=== PATIENT | male | born 1945 | race Two or more races ===

== ENCOUNTER 2017-05-23 14:47 | Observation (INO) | payer BC, OTHER, MEDICARE ==
[~2017-05-23] VITALS: Ht 170.2 cm; Wt 110.7 kg
[~2017-05-23 14:47] MED LIST: ASPI-1264 PO; ATOR20TA66 PO; CARV-49 PO; CLOP75TA33 PO; GLIP5TAB13 PO; LISI-604 PO; NITR0.4T51 SL
[2017-05-23 15:30] LABS: BASOPHILS % (AUTO) 0 % (0-1); EOSINOPHILS # (AUTO) 0.2 X10'3 (0-0.9); EOSINOPHILS % (AUTO) 2.4 % (0-6); HEMATOCRIT 44.3 % (42.0-52.0); LYMPHOCYTES # (AUTO) 1.1 X10'3 (1.1-4.8); LYMPHOCYTES % (AUTO) 11.8 % (21-51); MEAN CORPUSCULAR HEMOGLOBIN 28.4 PG (27.0-31.0); MEAN CORPUSCULAR HGB CONC 33.9 % (33.0-36.5); MEAN CORPUSCULAR VOLUME 83.7 FL (78-98); MEAN PLATELET VOLUME 8.2 FL (7.4-10.4); MONOCYTES # (AUTO) 0.5 X10'3 (0-0.9); MONOCYTES % (AUTO) 5.3 % (2-12); NEUTROPHILS # (AUTO) 7.8 X10'3 (1.8-7.7); NEUTROPHILS % (AUTO) 80.5 % (42-75); PLATELET COUNT 290 X10'3 (140-440); RED CELL DISTRIBUTION WIDTH 15.3 % (11.5-14.5); WHITE BLOOD COUNT 9.7 X10'3 (4.5-11.0)
[2017-05-23 15:39] LABS: INR 1.1 INR; PARTIAL THROMBOPLASTIN TIME 25 SECONDS (22-32); PROTHROMBIN TIME 11.6 SECONDS (9.0-12.0)
[2017-05-23 15:44] LABS: ALANINE AMINOTRANSFERASE 17 U/L (12-78); ALBUMIN 3.6 G/DL (3.4-5.0); ALBUMIN/GLOBULIN RATIO 0.9 (1.1-1.5); ALKALINE PHOSPHATASE 94 IU/L (46-116); ANION GAP 11 (8-16); ASPARTATE AMINO TRANSFERASE 18 U/L (10-37); BILIRUBIN,TOTAL 0.9 MG/DL (0.1-1.0); BLOOD UREA NITROGEN 33 MG/DL (7-18); BUN/CREATININE RATIO 22.3 (5.4-32.0); CALCIUM 9.3 MG/DL (8.5-10.1); CHLORIDE 107 MMOL/L (99-107); CREATININE 1.48 MG/DL (0.60-1.10); GLUCOSE 144 MG/DL (70-104); POTASSIUM 3.8 MMOL/L (3.5-5.1); SODIUM 142 MMOL/L (135-145); TOTAL PROTEIN 7.8 G/DL (6.4-8.2); eGFR 47 ML/MIN
[2017-05-23] MEDS ORDERED: furosemide 10 MG/1 ML 10ml inj IV ONE (17:55)
[2017-05-23] MEDS ORDERED: COLC0.6T69 PO (19:56)
[2017-05-23] MEDS ORDERED: ASPI-1265 PO (19:56)
[2017-05-23] MEDS ORDERED: PRED5TAB PO (19:56)
[2017-05-23] MEDS ORDERED: ATOR40TA PO (19:58)
[2017-05-23] MEDS ORDERED: ASPI-41 PO (19:58)
[2017-05-23] MEDS ORDERED: mag hydrox/Alum hydrox/simeth 30ml oral suspension PO PRN (20:40)
[2017-05-23] MEDS ORDERED: potassium Cl 40MEQ/NS 500ml 500 ML IV PRN ×2 (20:40)
[2017-05-23] MEDS ORDERED: potassium Cl 20 mEq SR tablet PO PRN (20:40)
[2017-05-23] MEDS ORDERED: magnesium hydroxide 30ml (MOM) UD suspension PO PRN (20:40)
[2017-05-23] MEDS ORDERED: acetaminophen 325mg tablet PO PRN (20:40)
[2017-05-23] MEDS ORDERED: ondansetron/PF 4mg/2ml inj IV PRN (20:40)
[2017-05-23] MEDS ORDERED: colchicine 0.6mg tablet PO PRN (20:45)
[2017-05-23] MEDS ORDERED: non-formulary drug (Atorvastatin Calcium* (Lipitor*) 1 TABLET) PO SCH (21:00)
[2017-05-23] MEDS ORDERED: AMOX-101 PO (21:04)
[2017-05-24 03:14] LABS: BASOPHILS % (AUTO) 0.1 % (0-1); EOSINOPHILS # (AUTO) 0.2 X10'3 (0-0.9); EOSINOPHILS % (AUTO) 2.2 % (0-6); HEMOGLOBIN 14.8 g/dl (14.0-17.9); LYMPHOCYTES # (AUTO) 1.1 X10'3 (1.1-4.8); MEAN CORPUSCULAR HEMOGLOBIN 28.5 PG (27.0-31.0); MEAN CORPUSCULAR HGB CONC 33.8 % (33.0-36.5); MEAN CORPUSCULAR VOLUME 84.5 FL (78-98); MEAN PLATELET VOLUME 7.9 FL (7.4-10.4); MONOCYTES # (AUTO) 0.5 X10'3 (0-0.9); MONOCYTES % (AUTO) 5.3 % (2-12); NEUTROPHILS % (AUTO) 81.4 % (42-75); PLATELET COUNT 287 X10'3 (140-440); RED CELL DISTRIBUTION WIDTH 15.4 % (11.5-14.5); WHITE BLOOD COUNT 9.8 X10'3 (4.5-11.0)
[2017-05-24 03:37] LABS: ALBUMIN 3.5 G/DL (3.4-5.0); ANION GAP 11 (8-16); BLOOD UREA NITROGEN 30 MG/DL (7-18); BUN/CREATININE RATIO 19.7 (5.4-32.0); CALCIUM 9.3 MG/DL (8.5-10.1); CHLORIDE 105 MMOL/L (99-107); CHOL/HDL RATIO 3.4 (0.00-4.99); CHOLESTEROL 158 MG/DL (0-200); CREATININE 1.52 MG/DL (0.60-1.10); GLUCOSE 174 MG/DL (70-104); HDL CHOLESTEROL 46 MG/DL (35-60); LDL CHOLESTEROL 91 MG/DL (50-100); POTASSIUM 3.4 MMOL/L (3.5-5.1); SODIUM 143 MMOL/L (135-145); TOTAL CARBON DIOXIDE 27.3 MMOL/L (24-32); TRIGLYCERIDES 124 MG/DL (20-135); eGFR 46 ML/MIN
[2017-05-24] MEDS: K and/or MAG REPLACEMENT MC SCH (08:00)
[2017-05-24] MEDS ORDERED: lisinopril 5mg tablet PO SCH (08:00)
[2017-05-24] MEDS ORDERED: carVEDilol 3.125mg tablet PO SCH (08:00)
[2017-05-24] MEDS: aspirin 325mg tablet, delayed-release (Ecotrin) PO SCH (10:27)
[2017-05-24] MEDS: potassium Cl 20 mEq SR tablet PO PRN ×3 (10:27→20:40)
[2017-05-24] MEDS: furosemide 40mg/4ml inj IV SCH ×2 (10:27→20:13)
[2017-05-24] MEDS: clopidogrel 75mg tablet PO SCH (10:27)
[2017-05-24 16:05] VITALS: BP 131/86
[2017-05-24] MEDS ORDERED: bisoprolol 5mg tablet PO SCH (20:00)
[2017-05-24] MEDS: sacubitril/valsartan 24mg-26mg tablet PO SCH (20:12)
[2017-05-24] MEDS ORDERED: atorvastatin 20mg tablet PO SCH (21:00)
[2017-05-24 22:00] VITALS: BP 109/61
[2017-05-25 05:53] LABS: BASOPHILS % (AUTO) 0.4 % (0-1); EOSINOPHILS # (AUTO) 0.4 X10'3 (0-0.9); EOSINOPHILS % (AUTO) 4.6 % (0-6); HEMATOCRIT 48.4 % (42.0-52.0); HEMOGLOBIN 16.2 g/dl (14.0-17.9); LYMPHOCYTES # (AUTO) 0.9 X10'3 (1.1-4.8); LYMPHOCYTES % (AUTO) 11.2 % (21-51); MEAN CORPUSCULAR HEMOGLOBIN 27.8 PG (27.0-31.0); MEAN CORPUSCULAR HGB CONC 33.5 % (33.0-36.5); MONOCYTES # (AUTO) 0.5 X10'3 (0-0.9); MONOCYTES % (AUTO) 6.4 % (2-12); NEUTROPHILS # (AUTO) 6.4 X10'3 (1.8-7.7); NEUTROPHILS % (AUTO) 77.4 % (42-75); PLATELET COUNT 287 X10'3 (140-440); RED BLOOD COUNT 5.83 X10'6 (4.70-6.10); WHITE BLOOD COUNT 8.2 X10'3 (4.5-11.0)
[2017-05-25 06:00] VITALS: BP 102/86
[2017-05-25 06:32] LABS: ALBUMIN 3.3 G/DL (3.4-5.0); ANION GAP 12 (8-16); BLOOD UREA NITROGEN 31 MG/DL (7-18); BUN/CREATININE RATIO 19.3 (5.4-32.0); CALCIUM 9.1 MG/DL (8.5-10.1); CHLORIDE 103 MMOL/L (99-107); CREATININE 1.61 MG/DL (0.60-1.10); GLUCOSE 166 MG/DL (70-104); POTASSIUM 3.5 MMOL/L (3.5-5.1); SODIUM 142 MMOL/L (135-145); TOTAL CARBON DIOXIDE 26.7 MMOL/L (24-32); eGFR 43 ML/MIN
[2017-05-25] MEDS: K and/or MAG REPLACEMENT MC SCH (06:36)
[2017-05-25] MEDS: sacubitril/valsartan 24mg-26mg tablet PO SCH (07:36)
[2017-05-25] MEDS: clopidogrel 75mg tablet PO SCH (07:41)
[2017-05-25] MEDS: furosemide 40mg/4ml inj IV SCH (07:41)
[2017-05-25] MEDS: aspirin 325mg tablet, delayed-release (Ecotrin) PO SCH (07:41)
[2017-05-25] MEDS ORDERED: BISOPROLOL 5 MG PO SCH (08:00)
[2017-05-25 10:00] VITALS: BP 92/63
[2017-05-25] MEDS ORDERED: SACU1TAB PO (14:08)
[2017-05-25] MEDS ORDERED: BISO5TAB PO (14:08)
[2017-05-25] MEDS ORDERED: SPIR25TA PO (14:08)
[2017-05-25] MEDS ORDERED: FURO-149 PO (14:08)
== END 2017-05-25 15:00 | disposition home or self-care (01) ==
LOC: ER 14:47 → ED HOLD 20:38 → EDBEDREQ 05-24 15:39 → ORTHO 4S 05-24 16:05
PROVIDERS: ADMIT Family Medicine; ATTEND Family Medicine
DX: I13.0 Hypertensive heart and chronic kidney disease with heart failure and stage 1 through stage 4 chronic kidney disease, or unspecified chronic kidney disease (principal); I50.23 Acute on chronic systolic (congestive) heart failure; E11.22 Type 2 diabetes mellitus with diabetic chronic kidney disease; N18.3 Chronic kidney disease, stage 3 (moderate); I25.10 Atherosclerotic heart disease of native coronary artery without angina pectoris; E87.6 Hypokalemia; E78.5 Hyperlipidemia, unspecified; E78.00 Pure hypercholesterolemia, unspecified; G47.33 Obstructive sleep apnea (adult) (pediatric); E66.9 Obesity, unspecified; M10.9 Gout, unspecified; I25.2 Old myocardial infarction; I21.A1 Myocardial infarction type 2; I34.0 Nonrheumatic mitral (valve) insufficiency; Z87.891 Personal history of nicotine dependence; Z95.5 Presence of coronary angioplasty implant and graft; Z86.73 Personal history of transient ischemic attack (TIA), and cerebral infarction without residual deficits; Z95.1 Presence of aortocoronary bypass graft
CPT/HCPCS: 36415; 80048; 80053; 80061; 83880; 84484; 85025; 85610; 85730; 87070; 93005; 93306; 96374; 96376; 99285; G0378; J1940

== ENCOUNTER 2020-03-01 09:02 | Emergency (ER) | payer BC, MEDICARE, OTHER ==
[~2020-03-01] VITALS: Ht 170.2 cm; Wt 106.8 kg
[~2020-03-01 09:02] MED LIST changes: -ASPI-1264 PO; +ASPI-41 PO; -ATOR20TA66 PO; +ATOR40TA PO; +BISO5TAB PO; -CARV-49 PO; +COLC0.6T72 PO; +FURO-149 PO; -GLIP5TAB13 PO; -LISI-604 PO; +SACU1TAB PO; +SPIR25TA PO
[2020-03-01 09:17] VITALS: BP 91/48
[2020-03-01] MEDS ORDERED: furosemide 40mg/4ml inj IV ONE (09:30)
[2020-03-01] MEDS ORDERED: ipratropium/albuterol 3ml nebule NEB ONE (09:30)
[2020-03-01] MEDS ORDERED: methylPREDNISolone sod succ 125mg/2ml vial IV ONE (09:30)
[2020-03-01 10:30] LABS: BASOPHILS % (AUTO) 0.4 % (0-1); EOSINOPHILS % (AUTO) 0.7 % (0-6); HEMATOCRIT 45.6 % (42.0-52.0); HEMOGLOBIN 15.3 g/dl (14.0-17.9); LYMPHOCYTES # (AUTO) 0.6 X10'3 (1.1-4.8); LYMPHOCYTES % (AUTO) 11.8 % (21-51); MEAN CORPUSCULAR HEMOGLOBIN 30.4 PG (27.0-31.0); MEAN CORPUSCULAR HGB CONC 33.6 g/dL (33.0-36.5); MEAN CORPUSCULAR VOLUME 90.6 FL (78-98); MEAN PLATELET VOLUME 8.5 FL (7.4-10.4); MONOCYTES # (AUTO) 0.4 X10'3 (0-0.9); MONOCYTES % (AUTO) 8.8 % (2-12); NEUTROPHILS # (AUTO) 3.9 X10'3 (1.8-7.7); NEUTROPHILS % (AUTO) 78.3 % (42-75); PLATELET COUNT 159 X10'3 (140-440); RED BLOOD COUNT 5.03 X10'6 (4.70-6.10); RED CELL DISTRIBUTION WIDTH 13.6 % (11.5-14.5); WHITE BLOOD COUNT 4.9 X10'3 (4.5-11.0)
[2020-03-01 10:45] LABS: D-DIMER 0.84 MG/L FEU (0-0.50)
[2020-03-01 10:58] LABS: ALANINE AMINOTRANSFERASE 41 U/L (12-78); ALBUMIN 2.6 G/DL (3.4-5.0); ALBUMIN/GLOBULIN RATIO 0.5 (1.1-1.5); ALKALINE PHOSPHATASE 76 IU/L (46-116); ANION GAP 12 (8-16); ASPARTATE AMINO TRANSFERASE 46 U/L (10-37); BILIRUBIN,TOTAL 1.1 MG/DL (0.1-1.0); BLOOD UREA NITROGEN 36 MG/DL (7-18); BUN/CREATININE RATIO 18.4 (5.4-32.0); CALCIUM 8.5 MG/DL (8.5-10.1); CHLORIDE 100 MMOL/L (99-107); CREATININE 1.96 MG/DL (0.60-1.10); GLUCOSE 227 MG/DL (70-104); SODIUM 136 MMOL/L (135-145); TOTAL CARBON DIOXIDE 24.1 MMOL/L (24-32); TOTAL PROTEIN 7.4 G/DL (6.4-8.2); eGFR 34 ML/MIN
[2020-03-01] MEDS ORDERED: normal saline 1000ML IV soln IVB ONE (11:55)
== END 2020-03-01 13:05 | disposition home or self-care (01) ==
LOC: ER 09:03
DX: I50.33 Acute on chronic diastolic (congestive) heart failure (principal); I11.0 Hypertensive heart disease with heart failure; I95.9 Hypotension, unspecified; E86.1 Hypovolemia; J44.9 Chronic obstructive pulmonary disease, unspecified; I25.10 Atherosclerotic heart disease of native coronary artery without angina pectoris; E78.00 Pure hypercholesterolemia, unspecified; M10.9 Gout, unspecified; Z95.1 Presence of aortocoronary bypass graft; Z79.82 Long term (current) use of aspirin; Z79.899 Other long term (current) drug therapy
CPT/HCPCS: 36415; 71045; 80053; 83880; 84484; 85025; 85379; 93005; 94640; 96361; 96374; 96375; 99285; J1940; J2930; J7030; 94760

== ENCOUNTER 2021-04-14 21:03 | Inpatient (IN) | payer MEDICARE, BC ==
[~2021-04-14] VITALS: Ht 170.2 cm; Wt 96.8 kg
[~2021-04-14 21:03] MED LIST changes: +enoxaparin 100mg/ml syringe ONE; +enoxaparin 30mg/0.3ml syringe ONE; +methylPREDNISolone sod succ 125mg/2ml vial ONE
[2021-04-14] MEDS ORDERED: heparin 25,000 UNIT/250ml bag 250 ML IV SCH (21:20)
[2021-04-14] MEDS ORDERED: heparin 10,000 units/1 ML INJ IV ONE ×2 (21:20→21:25)
[2021-04-14] MEDS ORDERED: nitroGLYCERIN 1gm ointment UD TP ONE (21:20)
[2021-04-14] MEDS ORDERED: heparin 10,000 units/1 ML INJ IV PRN (21:20)
[2021-04-14] MEDS ORDERED: ALBU8HFA IH (21:25)
[2021-04-14] MEDS ORDERED: SACU1TAB PO (21:40)
[2021-04-14] MEDS ORDERED: CARV6.253 PO (21:40)
[2021-04-14] MEDS ORDERED: morphine 4 MG/ML inj SYRINge IV ONE (21:45)
[2021-04-14] MEDS ORDERED: proCHLORperazine 10 MG/2 ml inj IV ONE (21:45)
[2021-04-14 21:46] LABS: BASOPHILS # (AUTO) 0.1 X10'3 (0-0.2); BASOPHILS % (AUTO) 1.1 % (0-1); EOSINOPHILS # (AUTO) 0.4 X10'3 (0-0.9); HEMATOCRIT 46.3 % (42.0-52.0); HEMOGLOBIN 15.4 g/dl (14.0-17.9); LYMPHOCYTES # (AUTO) 1.2 X10'3 (1.1-4.8); MEAN CORPUSCULAR HEMOGLOBIN 29.3 PG (27.0-31.0); MEAN CORPUSCULAR HGB CONC 33.3 g/dL (33.0-36.5); MEAN CORPUSCULAR VOLUME 88.2 FL (78-98); MONOCYTES # (AUTO) 0.5 X10'3 (0-0.9); MONOCYTES % (AUTO) 6.2 % (2-12); NEUTROPHILS # (AUTO) 5.7 X10'3 (1.8-7.7); NEUTROPHILS % (AUTO) 72.7 % (42-75); PLATELET COUNT 260 X10'3 (140-440); RED BLOOD COUNT 5.25 X10'6 (4.70-6.10); RED CELL DISTRIBUTION WIDTH 16.3 % (11.5-14.5); WHITE BLOOD COUNT 7.8 X10'3 (4.5-11.0)
[2021-04-14 21:52] LABS: APTT 26 SECONDS (22-32)
[2021-04-14 21:55] LABS: ALANINE AMINOTRANSFERASE 14 U/L (12-78); ALBUMIN 3.7 G/DL (3.4-5.0); ALBUMIN/GLOBULIN RATIO 0.9 (1.1-1.5); ALKALINE PHOSPHATASE 83 IU/L (46-116); ANION GAP 14 (8-16); ASPARTATE AMINO TRANSFERASE 14 U/L (10-37); BILIRUBIN,TOTAL 1.5 MG/DL (0.1-1.0); BLOOD UREA NITROGEN 32 MG/DL (7-18); BUN/CREATININE RATIO 19.8 (5.4-32.0); CALCIUM 9.3 MG/DL (8.5-10.1); CHLORIDE 106 MMOL/L (99-107); CREATININE 1.62 MG/DL (0.60-1.10); GLUCOSE 190 MG/DL (70-104); POTASSIUM 3.8 MMOL/L (3.5-5.1); SODIUM 142 MMOL/L (135-145); TOTAL CARBON DIOXIDE 22.5 MMOL/L (24-32); TOTAL PROTEIN 7.7 G/DL (6.4-8.2); eGFR 42 ML/MIN
[2021-04-14] MEDS ORDERED: ondansetron/PF 4mg/2ml inj IV PRN (22:25)
[2021-04-14] MEDS ORDERED: magnesium 4gm in 100ml NS 100 ML IV PRN (22:25)
[2021-04-14] MEDS ORDERED: potassium Cl 20 mEq SR tablet PO PRN ×2 (22:25)
[2021-04-14] MEDS ORDERED: potassium CL 10mEq/100ml bag 100 ML IV PRN (22:25)
[2021-04-14] MEDS ORDERED: magnesium Cl slow-release 64mg tablet PO PRN (22:25)
[2021-04-14] MEDS ORDERED: magnesium 2GM in 50ml NS 50 ML IV PRN (22:25)
[2021-04-14] MEDS ORDERED: magnesium hydroxide 30ml (MOM) UD suspension PO PRN (22:25)
[2021-04-14] MEDS ORDERED: acetaminophen 325mg tablet PO PRN (22:25)
[2021-04-14] MEDS ORDERED: mag hydrox/Alum hydrox/simeth 30ml oral suspension PO PRN (22:25)
[2021-04-14] MEDS ORDERED: PERFLUTREN PROTEIN-A MICROSPHR (Optison) 0.22 MG/ML 3ML VIAL IV PRN (22:25)
[2021-04-14] MEDS ORDERED: albuterol 2.5 MG/3 ML nebule NEB PRN (22:30)
[2021-04-14] MEDS ORDERED: nitroGLYCERIN 0.4mg SUBLingual tab SL PRN (22:30)
--- NOTE | 2021-04-14 22:37 | NUR ---
Patient BP began to drop to 80/44 at 22:39 and O2 sat at 90%. MD notified and gave orders to remove nitro paste that had been previously applied to chest. 4L NC oxygen administered. BP raised to 93/47 at 22:40 and O2 saturation to 95%. No further orders at this time.
[2021-04-14 23:21] LABS: MAGNESIUM 1.8 MG/DL (1.5-2.4); POTASSIUM 4.2 MMOL/L (3.5-5.1)
--- NOTE | 2021-04-14 23:30 | NUR ---
Critical lab value taken. Troponin 172. notified.
[2021-04-15] VITALS (9 sets, daily range): BP systolic 104–120; BP diastolic 62–73
--- NOTE | 2021-04-15 | NUR ---
Patient transferred to floor from ED in no apparent distress. VS stable. Patient denies pain or discomfort. Patient oriented to room. All safety measures implemented. Will continue monitor
--- NOTE | 2021-04-15 04:30 | NUR ---
Patient has 9 VTACH beats while patient was asleep. MD made aware. EKG Strips signed and file in patient chart.
[2021-04-15 05:46] LABS: BASOPHILS # (AUTO) 0.1 X10'3 (0-0.2); BASOPHILS % (AUTO) 1.1 % (0-1); EOSINOPHILS # (AUTO) 0.1 X10'3 (0-0.9); EOSINOPHILS % (AUTO) 1.9 % (0-6); HEMATOCRIT 49.4 % (42.0-52.0); HEMOGLOBIN 16.3 g/dl (14.0-17.9); LYMPHOCYTES % (AUTO) 13.2 % (21-51); MEAN CORPUSCULAR HGB CONC 32.9 g/dL (33.0-36.5); MEAN CORPUSCULAR VOLUME 88.1 FL (78-98); MEAN PLATELET VOLUME 8.4 FL (7.4-10.4); MONOCYTES # (AUTO) 0.3 X10'3 (0-0.9); MONOCYTES % (AUTO) 4.1 % (2-12); NEUTROPHILS # (AUTO) 5.8 X10'3 (1.8-7.7); NEUTROPHILS % (AUTO) 79.7 % (42-75); PLATELET COUNT 243 X10'3 (140-440); RED BLOOD COUNT 5.61 X10'6 (4.70-6.10); RED CELL DISTRIBUTION WIDTH 16.3 % (11.5-14.5); WHITE BLOOD COUNT 7.2 X10'3 (4.5-11.0)
[2021-04-15 05:52] LABS: ALANINE AMINOTRANSFERASE 16 U/L (12-78); ALBUMIN 3.1 G/DL (3.4-5.0); ALBUMIN/GLOBULIN RATIO 0.9 (1.1-1.5); ALKALINE PHOSPHATASE 67 IU/L (46-116); ANION GAP 10 (8-16); ASPARTATE AMINO TRANSFERASE 30 U/L (10-37); BILIRUBIN,TOTAL 1.7 MG/DL (0.1-1.0); BLOOD UREA NITROGEN 31 MG/DL (7-18); BUN/CREATININE RATIO 19.7 (5.4-32.0); CALCIUM 8.6 MG/DL (8.5-10.1); CHLORIDE 109 MMOL/L (99-107); CREATININE 1.57 MG/DL (0.60-1.10); GLUCOSE 167 MG/DL (70-104); POTASSIUM 4.3 MMOL/L (3.5-5.1); SODIUM 143 MMOL/L (135-145); TOTAL CARBON DIOXIDE 23.6 MMOL/L (24-32); TOTAL PROTEIN 6.7 G/DL (6.4-8.2); eGFR 43 ML/MIN
--- NOTE | 2021-04-15 06:10 | NUR ---
Dr. brower paged to report increase 6hr troponin. Patient is pleasantly in bed. Denies pain or discomfort. All safety in place. Will continue to monitor
--- NOTE | 2021-04-15 07:02 | NUR ---
Problems reprioritized. Patient report given, questions answered & plan of care reviewed with CHINTAN Greenberg.
[2021-04-15] MEDS: K and/or MAG REPLACEMENT MC SCH ×2 (08:00→20:00)
[2021-04-15] MEDS: clopidogrel 75mg tablet PO SCH (09:31)
[2021-04-15] MEDS: sacubitril/valsartan 24mg-26mg tablet PO SCH ×2 (09:31→20:37)
[2021-04-15] MEDS: carvedilol 6.25mg tablet PO SCH ×2 (09:32→20:37)
[2021-04-15] MEDS: docusate sod 100mg capsule PO SCH ×2 (09:32→20:38)
[2021-04-15] MEDS ORDERED: midazolam 1 mg/ML 2ml injection ONE (10:56)
[2021-04-15] MEDS ORDERED: LIDOcaine 1% (10mg/ml)w/preservative inj. 20ml MDV ONE (10:56)
[2021-04-15] MEDS ORDERED: iohexol 350 MG/1 ML 200ml bottle ONE (10:56)
[2021-04-15] MEDS ORDERED: nitroGLYCERIN-Tridil 50MG/D5W 250 ML IV ONE (10:56)
[2021-04-15] MEDS ORDERED: fentaNYL/PF 50MCG/1 ML 2ML syringe ONE (10:56)
[2021-04-15] MEDS ORDERED: heparin 1,000unit/ml 10ml vial 10 ML ONE (10:56)
[2021-04-15] MEDS ORDERED: iohexol 350 MG/ML 50ML vial IV ONE (10:56)
[2021-04-15] MEDS ORDERED: DOBUTamine-DoBUTrex 500mg/D5W 250 ML IV ONE (11:52)
[2021-04-15] MEDS ORDERED: furosemide 40mg/4ml inj ONE ×2 (11:52→12:22)
[2021-04-15] MEDS ORDERED: iohexol 350MG/ML 100ml bottle IV ONE (12:51)
[2021-04-15] MEDS ORDERED: clopidogrel 300mg tablet ONE (13:16)
--- NOTE | 2021-04-15 14:08 | NUR ---
1400- patient return from cardiac Cath Aox4 BP at this time 112/62, HR 74, 02 97% no complications noted at this time.
[2021-04-15] MEDS ORDERED: HYDROcodone/acetaminophen 10/325mg tab PO PRN ×2 (14:20)
[2021-04-15] MEDS ORDERED: cyclobenzaprine 10mg tablet PO PRN (14:20)
[2021-04-15] MEDS ORDERED: acetaminophen 325mg tablet PO PRN ×2 (14:20)
[2021-04-15] MEDS: DOBUTamine 2000 MCG/250ML BAG IV SCH (17:17)
--- NOTE | 2021-04-15 18:23 | NUR ---
late entry heparin stop at 1430 per MD order.
[2021-04-15] MEDS: potassium Cl 20 mEq SR tablet PO SCH (20:37)
[2021-04-15] MEDS: atorvastatin 20mg tablet PO SCH (20:38)
[2021-04-15] MEDS: furosemide 40mg/4ml inj IV SCH (20:38)
--- NOTE | 2021-04-15 23:00 | NUR ---
Pt placed on standby cardiac monitoring. Pt denied chest pain or any other discomfort.
[2021-04-16] VITALS (14 sets, daily range): BP systolic 91–114; BP diastolic 56–70
--- NOTE | 2021-04-16 02:33 | NUR ---
Dr Monsivais made aware of pt's low heart rate 48-53 note on the cigarette machine operator. pt is getting dobutamine drips; no order given and stated that it is ok.
--- NOTE | 2021-04-16 03:02 | NUR ---
notified of BP 91/56 and 93/58 while pt getting Dobutamine drips; no further order give.
[2021-04-16] MEDS: DOBUTamine 2000 MCG/250ML BAG IV SCH ×2 (05:27→22:51)
--- NOTE | 2021-04-16 06:15 | NUR ---
Patient in room PCU 3015. I have received report from Kaitlynn WOODSON and had the opportunity to ask questions and assume patient care.
--- NOTE | 2021-04-16 06:28 | NUR ---
Patient in room PCU 3015. I have received report from CHINTAN Calderón and had the opportunity to ask questions and assume patient care.
[2021-04-16 06:32] LABS: BASOPHILS # (AUTO) 0.1 X10'3 (0-0.2); BASOPHILS % (AUTO) 0.8 % (0-1); EOSINOPHILS # (AUTO) 0.4 X10'3 (0-0.9); EOSINOPHILS % (AUTO) 5.5 % (0-6); HEMATOCRIT 41.1 % (42.0-52.0); HEMOGLOBIN 13.9 g/dl (14.0-17.9); LYMPHOCYTES # (AUTO) 0.9 X10'3 (1.1-4.8); LYMPHOCYTES % (AUTO) 13.1 % (21-51); MEAN CORPUSCULAR HEMOGLOBIN 29.3 PG (27.0-31.0); MEAN CORPUSCULAR HGB CONC 33.7 g/dL (33.0-36.5); MEAN CORPUSCULAR VOLUME 87.1 FL (78-98); MEAN PLATELET VOLUME 7.9 FL (7.4-10.4); MONOCYTES # (AUTO) 0.5 X10'3 (0-0.9); MONOCYTES % (AUTO) 7.1 % (2-12); NEUTROPHILS # (AUTO) 5.1 X10'3 (1.8-7.7); NEUTROPHILS % (AUTO) 73.5 % (42-75); PLATELET COUNT 214 X10'3 (140-440); RED BLOOD COUNT 4.72 X10'6 (4.70-6.10); WHITE BLOOD COUNT 6.9 X10'3 (4.5-11.0)
[2021-04-16 07:10] LABS: ALANINE AMINOTRANSFERASE 14 U/L (12-78); ALBUMIN 2.9 G/DL (3.4-5.0); ALBUMIN/GLOBULIN RATIO 0.9 (1.1-1.5); ALKALINE PHOSPHATASE 63 IU/L (46-116); ASPARTATE AMINO TRANSFERASE 40 U/L (10-37); BLOOD UREA NITROGEN 32 MG/DL (7-18); BUN/CREATININE RATIO 17.1 (5.4-32.0); CALCIUM 8.5 MG/DL (8.5-10.1); CHLORIDE 103 MMOL/L (99-107); CHOL/HDL RATIO 2.8 (0.00-4.99); CHOLESTEROL 164 MG/DL (0-200); CREATININE 1.87 MG/DL (0.60-1.10); GLUCOSE 133 MG/DL (70-104); HDL CHOLESTEROL 59 MG/DL (35-60); LDL CHOLESTEROL 90 MG/DL (50-100); MAGNESIUM 1.9 MG/DL (1.5-2.4); TOTAL CARBON DIOXIDE 24.3 MMOL/L (24-32); TOTAL PROTEIN 6.3 G/DL (6.4-8.2); TRIGLYCERIDES 81 MG/DL (20-135); eGFR 35 ML/MIN
[2021-04-16] MEDS: sacubitril/valsartan 24mg-26mg tablet PO SCH ×3 (07:29→20:11)
[2021-04-16] MEDS: docusate sod 100mg capsule PO SCH (07:30)
[2021-04-16] MEDS: carvedilol 6.25mg tablet PO SCH (07:30)
[2021-04-16 07:34] LABS: ANION GAP 16 (8-16); POTASSIUM 3.6 MMOL/L (3.5-5.1); SODIUM 143 MMOL/L (135-145)
[2021-04-16] MEDS: K and/or MAG REPLACEMENT MC SCH ×2 (07:43→20:00)
[2021-04-16] MEDS: potassium Cl 20 mEq SR tablet PO SCH ×2 (07:44→20:10)
[2021-04-16] MEDS: furosemide 40mg/4ml inj IV SCH ×2 (07:44→20:00)
[2021-04-16] MEDS: clopidogrel 75mg tablet PO SCH (07:44)
[2021-04-16] MEDS ORDERED: carVEDilol 3.125mg tablet PO ONE (10:05)
--- NOTE | 2021-04-16 16:49 | NUR ---
Pt discharged to home from the hospital. Discharge paperwork reviewed with patient and their spouse with the assistance of this service writer advisor. PIV and telemetry removed. Belongings returned. All questions answered prior to signing discharge paperwork.
--- NOTE | 2021-04-16 18:00 | NUR ---
[place] documentation: I have reviewed and agree with all interventions, assessments performed and documented by Farideh Winters RN.
--- NOTE | 2021-04-16 18:10 | NUR ---
Problems reprioritized. Patient report given, questions answered & plan of care reviewed with Kaitlynn WOODSON.
--- NOTE | 2021-04-16 18:24 | NUR ---
Problems reprioritized. Patient report given, questions answered & plan of care reviewed with CHINTAN Calderón.
--- NOTE | 2021-04-16 18:30 | NUR ---
Pt in bed AAOx4 eating dinner, denied any complaints. Dobutamine drips infusing via left arm at 5mcg/kg/m. Vitals has been monitor per protocol. right groin procedure site dressing is clean and intact, pedal pulse palpable on both foot.
[2021-04-16] MEDS: atorvastatin 20mg tablet PO SCH (20:10)
[2021-04-16] MEDS: carVEDilol 3.125mg tablet PO SCH (20:11)
[2021-04-17] VITALS (16 sets, daily range): BP systolic 75–125; BP diastolic 40–83
--- NOTE | 2021-04-17 04:00 | NUR ---
Pt asleep, IV drips infusing well with no complaints
[2021-04-17 07:33] LABS: BASOPHILS % (AUTO) 0.5 % (0-1); EOSINOPHILS # (AUTO) 0.4 X10'3 (0-0.9); EOSINOPHILS % (AUTO) 5.9 % (0-6); HEMATOCRIT 41.8 % (42.0-52.0); HEMOGLOBIN 14.1 g/dl (14.0-17.9); LYMPHOCYTES # (AUTO) 0.8 X10'3 (1.1-4.8); LYMPHOCYTES % (AUTO) 11.1 % (21-51); MEAN CORPUSCULAR HEMOGLOBIN 29.4 PG (27.0-31.0); MEAN CORPUSCULAR HGB CONC 33.6 g/dL (33.0-36.5); MEAN CORPUSCULAR VOLUME 87.3 FL (78-98); MEAN PLATELET VOLUME 8.2 FL (7.4-10.4); MONOCYTES # (AUTO) 0.6 X10'3 (0-0.9); MONOCYTES % (AUTO) 8.2 % (2-12); NEUTROPHILS # (AUTO) 5.2 X10'3 (1.8-7.7); NEUTROPHILS % (AUTO) 74.3 % (42-75); PLATELET COUNT 203 X10'3 (140-440); RED CELL DISTRIBUTION WIDTH 16.1 % (11.5-14.5)
[2021-04-17 07:42] LABS: ALANINE AMINOTRANSFERASE 14 U/L (12-78); ALBUMIN 2.9 G/DL (3.4-5.0); ALBUMIN/GLOBULIN RATIO 0.9 (1.1-1.5); ALKALINE PHOSPHATASE 63 IU/L (46-116); ANION GAP 13 (8-16); ASPARTATE AMINO TRANSFERASE 26 U/L (10-37); BILIRUBIN,TOTAL 2.2 MG/DL (0.1-1.0); BLOOD UREA NITROGEN 32 MG/DL (7-18); BUN/CREATININE RATIO 14.2 (5.4-32.0); CALCIUM 8.8 MG/DL (8.5-10.1); CHLORIDE 104 MMOL/L (99-107); CREATININE 2.26 MG/DL (0.60-1.10); GLUCOSE 130 MG/DL (70-104); MAGNESIUM 1.9 MG/DL (1.5-2.4); POTASSIUM 3.6 MMOL/L (3.5-5.1); SODIUM 141 MMOL/L (135-145); TOTAL CARBON DIOXIDE 24.2 MMOL/L (24-32); TOTAL PROTEIN 6.3 G/DL (6.4-8.2); eGFR 29 ML/MIN
[2021-04-17] MEDS: K and/or MAG REPLACEMENT MC SCH ×2 (08:00→19:15)
[2021-04-17] MEDS: potassium Cl 20 mEq SR tablet PO SCH (08:14)
[2021-04-17] MEDS: sacubitril/valsartan 24mg-26mg tablet PO SCH ×2 (08:14→21:40)
[2021-04-17] MEDS: furosemide 40mg/4ml inj IV SCH (08:14)
[2021-04-17] MEDS: carVEDilol 3.125mg tablet PO SCH ×2 (08:15→21:40)
[2021-04-17] MEDS: clopidogrel 75mg tablet PO SCH (08:15)
--- NOTE | 2021-04-17 15:55 | NUR ---
DIETARY CLIENT HAS LOST 38LBS ON A LOW CARB DIET
--- NOTE | 2021-04-17 17:00 | NUR ---
Mr Gilmore has been assessed as indicated. He continues to deny pain. He has ambulated about the unit with assistance for equipment. He has been fitted and instructed on the Zoll life vest. He has it on now. Dobutamine drip will be decreased and stopped in AM. It is intended that he will be DC to home tomorrow
--- NOTE | 2021-04-17 18:15 | NUR ---
Problems reprioritized. Patient report given, questions answered & plan of care reviewed with HEAVENLY.
[2021-04-17] MEDS: DOBUTamine 2000 MCG/250ML BAG IV SCH (18:47)
--- NOTE | 2021-04-17 21:00 | NUR ---
Pt removed the life west, reported that it is not working well. Life west reapplied and pt encouraged to keep it on. Vitals remained stable on the monitor. Pt voiced no other complaints.
[2021-04-17] MEDS: atorvastatin 20mg tablet PO SCH (21:40)
[2021-04-17] MEDS: OXAZEpam 15mg capsule PO PRN (21:40)
[2021-04-18] VITALS (14 sets, daily range): BP systolic 77–144; BP diastolic 35–99
--- NOTE | 2021-04-18 02:00 | NUR ---
IV medication infusing well. Continued to tech patient the importance of keeping the life west on as instructed.
[2021-04-18 05:46] LABS: BASOPHILS # (AUTO) 0.1 X10'3 (0-0.2); BASOPHILS % (AUTO) 0.8 % (0-1); EOSINOPHILS # (AUTO) 0.5 X10'3 (0-0.9); HEMOGLOBIN 14.3 g/dl (14.0-17.9); LYMPHOCYTES % (AUTO) 15.3 % (21-51); MEAN CORPUSCULAR HEMOGLOBIN 29.1 PG (27.0-31.0); MEAN CORPUSCULAR HGB CONC 33.3 g/dL (33.0-36.5); MEAN CORPUSCULAR VOLUME 87.2 FL (78-98); MEAN PLATELET VOLUME 7.9 FL (7.4-10.4); MONOCYTES # (AUTO) 0.6 X10'3 (0-0.9); MONOCYTES % (AUTO) 9.5 % (2-12); NEUTROPHILS # (AUTO) 4.4 X10'3 (1.8-7.7); NEUTROPHILS % (AUTO) 67.4 % (42-75); PLATELET COUNT 213 X10'3 (140-440); RED BLOOD COUNT 4.93 X10'6 (4.70-6.10); WHITE BLOOD COUNT 6.6 X10'3 (4.5-11.0)
[2021-04-18 06:34] LABS: ALANINE AMINOTRANSFERASE 15 U/L (12-78); ALBUMIN 3.1 G/DL (3.4-5.0); ALBUMIN/GLOBULIN RATIO 0.8 (1.1-1.5); ALKALINE PHOSPHATASE 67 IU/L (46-116); ANION GAP 12 (8-16); ASPARTATE AMINO TRANSFERASE 20 U/L (10-37); BILIRUBIN,TOTAL 1.8 MG/DL (0.1-1.0); BLOOD UREA NITROGEN 38 MG/DL (7-18); BUN/CREATININE RATIO 12.5 (5.4-32.0); CALCIUM 8.8 MG/DL (8.5-10.1); CHLORIDE 103 MMOL/L (99-107); CREATININE 3.04 MG/DL (0.60-1.10); GLUCOSE 125 MG/DL (70-104); POTASSIUM 3.7 MMOL/L (3.5-5.1); SODIUM 139 MMOL/L (135-145); TOTAL PROTEIN 6.8 G/DL (6.4-8.2); eGFR 20 ML/MIN
[2021-04-18] MEDS ORDERED: DOBUTamine-DoBUTrex 500mg/D5W 250 ML IV SCH ×2 (07:00→11:07)
[2021-04-18] MEDS: carVEDilol 3.125mg tablet PO SCH ×2 (08:00→20:25)
[2021-04-18] MEDS: K and/or MAG REPLACEMENT MC SCH ×2 (08:00→20:00)
[2021-04-18] MEDS ORDERED: furosemide 40mg tablet PO SCH (08:00)
[2021-04-18] MEDS: sacubitril/valsartan 24mg-26mg tablet PO SCH (08:00)
[2021-04-18] MEDS: potassium Cl 20 mEq SR tablet PO SCH (08:26)
[2021-04-18] MEDS: clopidogrel 75mg tablet PO SCH (08:26)
--- NOTE | 2021-04-18 09:12 | NUR ---
Initial: Pt admitted w/ NSTEMI per EMR. Currently on Heart Healthy diet w/ mostly 100% intake of meals meeting needs, though recommend liberalizing Regular diet given lipid panel WNL. LBM 04/15 w/ PRN MoM available. No nutrition intervention implemented at this time, will continue to monitor. Recs: 1. Continue Heart Healthy diet as tolerated, liberalize to Regular, lipid panel WNL 2. Bowel care per rx 3. Weekly wts Addendum: 04/18/21 at [address] Amended: Links added.
[2021-04-18] MEDS ORDERED: normal saline 1000ml 1,000 ML IV SCH ×2 (09:50→16:35)
[2021-04-18] MEDS: aspirin 81mg tab.chew PO SCH (12:42)
--- NOTE | 2021-04-18 16:30 | NUR ---
Dr Edwards has requested NS at 50ml after current IVF until labs are evaluated in AM.
--- NOTE | 2021-04-18 18:20 | NUR ---
Problems reprioritized. Patient report given, questions answered & plan of care reviewed with HEAVENLY .
[2021-04-18] MEDS: OXAZEpam 15mg capsule PO PRN (20:25)
[2021-04-18] MEDS: atorvastatin 20mg tablet PO SCH (20:25)
[2021-04-19] VITALS (22 sets, daily range): BP systolic 91–117; BP diastolic 45–81
[2021-04-19 06:39] LABS: BASOPHILS % (AUTO) 0.6 % (0-1); EOSINOPHILS # (AUTO) 0.5 X10'3 (0-0.9); EOSINOPHILS % (AUTO) 7.7 % (0-6); HEMATOCRIT 41.1 % (42.0-52.0); HEMOGLOBIN 13.5 g/dl (14.0-17.9); LYMPHOCYTES # (AUTO) 0.8 X10'3 (1.1-4.8); LYMPHOCYTES % (AUTO) 13.1 % (21-51); MEAN CORPUSCULAR HEMOGLOBIN 28.9 PG (27.0-31.0); MEAN CORPUSCULAR HGB CONC 32.8 g/dL (33.0-36.5); MONOCYTES # (AUTO) 0.5 X10'3 (0-0.9); MONOCYTES % (AUTO) 9.1 % (2-12); NEUTROPHILS # (AUTO) 4.2 X10'3 (1.8-7.7); NEUTROPHILS % (AUTO) 69.5 % (42-75); PLATELET COUNT 207 X10'3 (140-440); RED BLOOD COUNT 4.67 X10'6 (4.70-6.10); RED CELL DISTRIBUTION WIDTH 16.4 % (11.5-14.5); WHITE BLOOD COUNT 6.1 X10'3 (4.5-11.0)
[2021-04-19 07:06] LABS: ALANINE AMINOTRANSFERASE 14 U/L (12-78); ALBUMIN 2.9 G/DL (3.4-5.0); ALBUMIN/GLOBULIN RATIO 0.8 (1.1-1.5); ALKALINE PHOSPHATASE 61 IU/L (46-116); ANION GAP 12 (8-16); ASPARTATE AMINO TRANSFERASE 23 U/L (10-37); BILIRUBIN,TOTAL 1.4 MG/DL (0.1-1.0); BLOOD UREA NITROGEN 42 MG/DL (7-18); BUN/CREATININE RATIO 11.9 (5.4-32.0); CALCIUM 8.4 MG/DL (8.5-10.1); CHLORIDE 106 MMOL/L (99-107); CREATININE 3.52 MG/DL (0.60-1.10); GLUCOSE 125 MG/DL (70-104); SODIUM 139 MMOL/L (135-145); TOTAL CARBON DIOXIDE 21.3 MMOL/L (24-32); TOTAL PROTEIN 6.4 G/DL (6.4-8.2); eGFR 17 ML/MIN
[2021-04-19] MEDS: K and/or MAG REPLACEMENT MC SCH ×2 (08:00→20:00)
--- NOTE | 2021-04-19 08:17 | NUR ---
Message: 30[address] lan dyspnea hx of anx. may I have Ativan? Nurse Ro 2017 above to ROB client is working hard to breath PRN neb has alos been required Addendum: 04/19/21 at 1926 by Nora Rai RN above note wrong client
[2021-04-19] MEDS: aspirin 81mg tab.chew PO SCH (10:00)
[2021-04-19] MEDS: carVEDilol 3.125mg tablet PO SCH ×2 (10:00→20:13)
[2021-04-19] MEDS: clopidogrel 75mg tablet PO SCH (10:05)
[2021-04-19] MEDS: DOBUTamine-DoBUTrex 500mg/D5W 250 ML IV SCH ×2 (10:47→18:45)
[2021-04-19 16:53] LABS: CLARITY,URINE CLEAR (Clear); COLOR,URINE YELLOW (Yellow); GLUCOSE, URINE NEGATIVE (Neg); KETONES,URINE NEGATIVE (Neg); LEUKOCYTE ESTERASE ,URINE NEGATIVE (Neg); NITRITES, URINE NEGATIVE (Neg); OCCULT BLOOD,URINE NEGATIVE (Neg); PROTEIN,URINE TRACE mg/dl (Neg); UROBILINOGEN,URINE 0.2 E.U/dL (0.2-1.0)
[2021-04-19 17:18] LABS: UA COLLECTION TYPE NON-SPECIFIED
[2021-04-19 17:21] LABS: BACTERIA,URINE FEW /HPF (Neg); RBC,URINE NONE SEEN /HPF (0-2); SQUAMOUS EPITHELIAL CELL,UR FEW /LPF (FEW); WBC,URINE 0-4 /HPF (0-4)
--- NOTE | 2021-04-19 18:00 | NUR ---
Mr Hannon was assessed a indicated. renal function is continually being monitored. Dobutamine was increased to 5 this shift. IV fluids were DC. He ambulates about the unit with assistance from staff for equipment management. He continues to deny pain and will continue to be monitored
--- NOTE | 2021-04-19 18:15 | NUR ---
Problems reprioritized. Patient report given, questions answered & plan of care reviewed with [employer].
[2021-04-19] MEDS: atorvastatin 20mg tablet PO SCH (20:13)
[2021-04-20] VITALS (20 sets, daily range): BP systolic 97–121; BP diastolic 55–74
[2021-04-20] MEDS: K and/or MAG REPLACEMENT MC SCH ×2 (08:00→20:00)
[2021-04-20] MEDS: aspirin 81mg tab.chew PO SCH (08:47)
[2021-04-20] MEDS: carVEDilol 3.125mg tablet PO SCH ×2 (08:47→20:08)
[2021-04-20] MEDS: clopidogrel 75mg tablet PO SCH (08:47)
[2021-04-20 09:44] LABS: BASOPHILS # (AUTO) 0.1 X10'3 (0-0.2); BASOPHILS % (AUTO) 0.8 % (0-1); EOSINOPHILS # (AUTO) 0.4 X10'3 (0-0.9); EOSINOPHILS % (AUTO) 5.6 % (0-6); HEMATOCRIT 41.6 % (42.0-52.0); HEMOGLOBIN 13.6 g/dl (14.0-17.9); LYMPHOCYTES # (AUTO) 0.8 X10'3 (1.1-4.8); MEAN CORPUSCULAR HEMOGLOBIN 28.8 PG (27.0-31.0); MEAN CORPUSCULAR HGB CONC 32.8 g/dL (33.0-36.5); MEAN CORPUSCULAR VOLUME 87.8 FL (78-98); MEAN PLATELET VOLUME 7.9 FL (7.4-10.4); MONOCYTES # (AUTO) 0.5 X10'3 (0-0.9); MONOCYTES % (AUTO) 7.1 % (2-12); NEUTROPHILS # (AUTO) 5.6 X10'3 (1.8-7.7); NEUTROPHILS % (AUTO) 75.5 % (42-75); PLATELET COUNT 240 X10'3 (140-440); RED BLOOD COUNT 4.73 X10'6 (4.70-6.10); RED CELL DISTRIBUTION WIDTH 16.6 % (11.5-14.5); WHITE BLOOD COUNT 7.4 X10'3 (4.5-11.0)
[2021-04-20 09:54] LABS: ANION GAP 13 (8-16); BLOOD UREA NITROGEN 38 MG/DL (7-18); BUN/CREATININE RATIO 12.3 (5.4-32.0); CALCIUM 8.8 MG/DL (8.5-10.1); CHLORIDE 104 MMOL/L (99-107); CREATININE 3.08 MG/DL (0.60-1.10); GLUCOSE 157 MG/DL (70-104); POTASSIUM 4.1 MMOL/L (3.5-5.1); SODIUM 140 MMOL/L (135-145); TOTAL CARBON DIOXIDE 22.9 MMOL/L (24-32); eGFR 20 ML/MIN
[2021-04-20 15:08] LABS: CLARITY,URINE CLEAR (Clear); COLOR,URINE YELLOW (Yellow); GLUCOSE, URINE NEGATIVE (Neg); KETONES,URINE NEGATIVE (Neg); LEUKOCYTE ESTERASE ,URINE NEGATIVE (Neg); NITRITES, URINE NEGATIVE (Neg); OCCULT BLOOD,URINE NEGATIVE (Neg); PH,URINE 5.5 (4.8-8.0); PROTEIN,URINE TRACE mg/dl (Neg)
[2021-04-20 15:09] LABS: TOTAL PROTEIN,URINE RANDOM 59.9 MG/DL
[2021-04-20 15:12] LABS: UA COLLECTION TYPE URINAL
[2021-04-20 15:15] LABS: BACTERIA,URINE NONE SEEN /HPF (Neg); RBC,URINE NONE SEEN /HPF (0-2); SQUAMOUS EPITHELIAL CELL,UR FEW /LPF (FEW); WBC,URINE 0-4 /HPF (0-4)
[2021-04-20 15:41] LABS: UA EOSINOPHILS RARE EOS /HPF
[2021-04-20] MEDS: DOBUTamine-DoBUTrex 500mg/D5W 250 ML IV SCH (16:11)
--- NOTE | 2021-04-20 16:45 | NUR ---
restart Entresto in AM (04/21/21) per Dr Edwards
--- NOTE | 2021-04-20 17:45 | NUR ---
Mr Hannon has been assessed as indicated. He continues to deny pain. he has been noted to he both pleasant and cooperative. He remains on Dobutamine drip and has tolerated it well. VS remain stable. He will restart Entresto tomorrow 04/21/21
--- NOTE | 2021-04-20 18:19 | NUR ---
Problems reprioritized. Patient report given, questions answered & plan of care reviewed with [employer].
[2021-04-20] MEDS ORDERED: DOBUTamine-DoBUTrex 500mg/D5W 250 ML IV SCH (18:33)
[2021-04-20] MEDS: atorvastatin 20mg tablet PO SCH (20:08)
[2021-04-21] VITALS (9 sets, daily range): BP systolic 94–162; BP diastolic 58–96
[2021-04-21 06:40] LABS: BASOPHILS % (AUTO) 0.5 % (0-1); EOSINOPHILS # (AUTO) 0.3 X10'3 (0-0.9); EOSINOPHILS % (AUTO) 4.7 % (0-6); HEMATOCRIT 40.8 % (42.0-52.0); HEMOGLOBIN 13.6 g/dl (14.0-17.9); LYMPHOCYTES # (AUTO) 0.9 X10'3 (1.1-4.8); LYMPHOCYTES % (AUTO) 12.4 % (21-51); MEAN CORPUSCULAR HGB CONC 33.2 g/dL (33.0-36.5); MEAN CORPUSCULAR VOLUME 87.4 FL (78-98); MONOCYTES # (AUTO) 0.7 X10'3 (0-0.9); MONOCYTES % (AUTO) 9.1 % (2-12); NEUTROPHILS # (AUTO) 5.4 X10'3 (1.8-7.7); NEUTROPHILS % (AUTO) 73.3 % (42-75); PLATELET COUNT 238 X10'3 (140-440); RED BLOOD COUNT 4.67 X10'6 (4.70-6.10); RED CELL DISTRIBUTION WIDTH 16.2 % (11.5-14.5); WHITE BLOOD COUNT 7.3 X10'3 (4.5-11.0)
[2021-04-21 06:46] LABS: ALANINE AMINOTRANSFERASE 25 U/L (12-78); ALBUMIN 2.8 G/DL (3.4-5.0); ALBUMIN/GLOBULIN RATIO 0.8 (1.1-1.5); ALKALINE PHOSPHATASE 63 IU/L (46-116); ANION GAP 7 (8-16); ASPARTATE AMINO TRANSFERASE 24 U/L (10-37); BILIRUBIN,TOTAL 1.8 MG/DL (0.1-1.0); BLOOD UREA NITROGEN 33 MG/DL (7-18); BUN/CREATININE RATIO 12.3 (5.4-32.0); CALCIUM 8.6 MG/DL (8.5-10.1); CHLORIDE 107 MMOL/L (99-107); CREATININE 2.69 MG/DL (0.60-1.10); GLUCOSE 127 MG/DL (70-104); SODIUM 139 MMOL/L (135-145); TOTAL CARBON DIOXIDE 24.6 MMOL/L (24-32); TOTAL PROTEIN 6.5 G/DL (6.4-8.2); eGFR 23 ML/MIN
[2021-04-21] MEDS: K and/or MAG REPLACEMENT MC SCH (08:00)
[2021-04-21] MEDS ORDERED: sacubitril/valsartan 24mg-26mg tablet PO SCH (08:00)
[2021-04-21] MEDS: clopidogrel 75mg tablet PO SCH (08:49)
[2021-04-21] MEDS: potassium Cl 20 mEq SR tablet PO SCH (08:49)
[2021-04-21] MEDS: carVEDilol 3.125mg tablet PO SCH (08:49)
[2021-04-21] MEDS: aspirin 81mg tab.chew PO SCH (08:49)
[2021-04-21] MEDS ORDERED: COR3.125T PO (16:13)
[2021-04-21] MEDS ORDERED: ASPI81TA53 PO (16:13)
[2021-04-21] MEDS ORDERED: POTA-197 PO (16:13)
== END 2021-04-21 17:45 | disposition home or self-care (01) | DRG 246 ==
LOC: ER 21:03 → ED HOLD 22:25 → PCU 3S 23:00
PROVIDERS: ADMIT Internal Medicine; ATTEND Family Medicine
PROC: 4A023N7 Measurement of Cardiac Sampling and Pressure, Left Heart, Percutaneous Approach (ICD-10-PCS; principal; 2021-04-15)
PROC: 027034Z Dilation of Coronary Artery, One Artery with Drug-eluting Intraluminal Device, Percutaneous Approach (ICD-10-PCS; 2021-04-15)
PROC: B2111ZZ Fluoroscopy of Multiple Coronary Arteries using Low Osmolar Contrast (ICD-10-PCS; 2021-04-15)
PROC: B2151ZZ Fluoroscopy of Left Heart using Low Osmolar Contrast (ICD-10-PCS; 2021-04-15)
PROC: B2131ZZ Fluoroscopy of Multiple Coronary Artery Bypass Grafts using Low Osmolar Contrast (ICD-10-PCS; 2021-04-15)
PROC: B2181ZZ Fluoroscopy of Left Internal Mammary Bypass Graft using Low Osmolar Contrast (ICD-10-PCS; 2021-04-15)
DX: T82.855A Stenosis of coronary artery stent, initial encounter (principal); I21.4 Non-ST elevation (NSTEMI) myocardial infarction; I50.23 Acute on chronic systolic (congestive) heart failure; N17.9 Acute kidney failure, unspecified; I42.0 Dilated cardiomyopathy; I13.0 Hypertensive heart and chronic kidney disease with heart failure and stage 1 through stage 4 chronic kidney disease, or unspecified chronic kidney disease; E78.00 Pure hypercholesterolemia, unspecified; E78.5 Hyperlipidemia, unspecified; G47.33 Obstructive sleep apnea (adult) (pediatric); I25.119 Atherosclerotic heart disease of native coronary artery with unspecified angina pectoris; Z20.822 Contact with and (suspected) exposure to COVID-19; I25.5 Ischemic cardiomyopathy; E66.9 Obesity, unspecified; N18.32 Chronic kidney disease, stage 3b; M10.9 Gout, unspecified; Y83.1 Surgical operation with implant of artificial internal device as the cause of abnormal reaction of the patient, or of later complication, without mention of misadventure at the time of the procedure; Y92.89 Other specified places as the place of occurrence of the external cause; Z82.3 Family history of stroke; Z82.49 Family history of ischemic heart disease and other diseases of the circulatory system; Z87.442 Personal history of urinary calculi; Z95.1 Presence of aortocoronary bypass graft; I25.2 Old myocardial infarction; Z95.5 Presence of coronary angioplasty implant and graft; Z68.33 Body mass index [BMI] 33.0-33.9, adult; Z79.899 Other long term (current) drug therapy; Z79.02 Long term (current) use of antithrombotics/antiplatelets
CPT/HCPCS: 93306; 93459; 96365; 99285; C9600; 36415; 71045; 76770; 76937; 80048; 80053; 80061; 81001; 82570; 83735; 83880; 84132; 84156; 84300; 84484; 85025; 85347; 85610; 85730; 87081; 87207; 87635; 93005; 99152; 99153; A4620; A6258; C1725; C1751; C1760; C1769; C1874; C1894; C9803; G0378; J0780; J1250; J1644; J1650; J1940; J2250; J2270; J2930; J3010; J3490; J7030; Q9967

== ENCOUNTER 2021-06-27 11:27 | Outpatient (CLI) | payer MEDICARE, BC ==
[~2021-06-27 11:27] MED LIST changes: +ALBU8HFA IH; -ASPI-41 PO; +ASPI81TA53 PO; -BISO5TAB PO; -COLC0.6T72 PO; +COR3.125T PO; -FURO-149 PO; +POTA-197 PO; -SPIR25TA PO; -enoxaparin 100mg/ml syringe ONE; -enoxaparin 30mg/0.3ml syringe ONE; -methylPREDNISolone sod succ 125mg/2ml vial ONE
== END 2021-06-27 23:59 | disposition home or self-care (01) ==
LOC: CARD DIAG 11:27
PROVIDERS: ATTEND Internal Medicine Cardiovascular Disease
DX: I08.0 Rheumatic disorders of both mitral and aortic valves (principal); I42.0 Dilated cardiomyopathy; I11.0 Hypertensive heart disease with heart failure; I50.9 Heart failure, unspecified; Z95.1 Presence of aortocoronary bypass graft; Z95.5 Presence of coronary angioplasty implant and graft
CPT/HCPCS: 93308